=== PATIENT | female | born 1980 | race Caucasian/White ===

== ENCOUNTER → 2017-09-18 | Outpatient (CLI) | payer OTHER | END | disposition home or self-care (01) | LOC: LAB.O 16:15 | PROVIDERS: ATTEND Family Medicine | DX: R53.83 Other fatigue (principal); M32.9 Systemic lupus erythematosus, unspecified ==

== ENCOUNTER → 2018-04-02 | Outpatient (CLI) | payer BC | LOC: GMAL 17:16 | PROVIDERS: ATTEND Family Medicine | DX: M32.10 Systemic lupus erythematosus, organ or system involvement unspecified (principal) ==

== ENCOUNTER → 2018-09-11 | Outpatient (CLI) | payer BC | LOC: GMAL 12:54 | PROVIDERS: ATTEND Family Medicine | DX: M08.3 Juvenile rheumatoid polyarthritis (seronegative) (principal) ==

== ENCOUNTER → 2018-11-12 | Outpatient (CLI) | payer BC ==
--- NOTE | 2018-11-12 10:57 | CT ---
EXAM DESCRIPTION: Chest w/wo Contrast : Computed Tomography. CLINICAL HISTORY: 38 years Female LYMPHADENOPATHY. Breast cancer Genetic positive. Previous breast cancer. Bilateral mastectomies. COMPARISON: Abdomen and pelvis CT scan 05/04/2012. TECHNIQUE: Spiral-axial scans at 5 mm intervals through the lungs and thorax without and with IV contrast. 2.5 mm lung algorithm axial reconstructions. Sagittal and coronal 2.0 Mm reconstructions. 5 mm postcontrast spiral axial images through the neck soft tissues. No adverse reactions. Total Exam DLP: 1250.77 mGy-cm. This exam was performed according to our departmental dose-optimization program which includes automated exposure control, adjustment of the mA and/or kV according to patient size and/or use of iterative reconstruction technique; to reduce radiation dose to as low as reasonably achievable (ALARA). Nodule measurements under 10 mm are given as mean value of 3 axes diameters. FINDINGS: Lungs and large airways: Multiple nodules relatively uniform in density and margins and all less than 5 mm in diameter is visible in the bilateral lung lobes. Fewer are seen in the mid lung patel. These are too numerous to count. A charter representative image in the lower lobes is on axial series/image 7/104. A calcification approximately 5 mm mean diameter is visible in the superior segment of the right middle lobe. No focal infiltrates. No larger solid masses. Pleural spaces: Moderate left pleural effusion. Minimal atelectasis in the right lower lobe including a nodule. No pneumothorax. Mediastinum and Rebecca: No enlarged lymph nodes or soft tissue masses. Great vessels and Heart: Unremarkable. Soft tissues of neck, axillae, and chest wall: Bilateral retro-muscular saline breast prostheses. No enlarged axillary lymph nodes. In the lower neck scans through the skin marker is visible on the left lateral neck, a group of 4-5 lymph nodes are noted in the adipose tissue with 2 layers of fascia. Mid thyroid lobe level Only one lymph node is visible in the same region contralateral right neck. The largest node in the left neck is approximately 8 x 5 mm (axial image 2/15.). More inferiorly at the level of the inferior thyroid gland is a supraclavicular node, on image 2/20, measuring 9 mm. Possible 3 mm lymph node anterior to the medial left first rib on image 2/. Low-density 7 mm axillary node abutting the superior lateral right breast prosthesis posterior margin on image 2/32. Small nodes bilaterally in the paracervical space posterior to the bilateral carotid lymph nodes space. Upper abdomen: Partial visualization of pancreas liver and bilateral upper kidneys with no focal lesions. Included periaortic spaces negative. Included peritoneal space is negative. No focal lesions in the spleen or adrenal glands. Gallbladder partially visualized. Osseous structures: Scoliosis in the thoracic spine. No lytic or blastic bony lesions in the thorax. IMPRESSION: 1. Multiple small nodules 5 mm and less in diameter, too numerous to count, in all segments of the bilateral lungs are suggestive of metastases to the lungs. Moderate to large left pleural effusion with left lower lobe atelectasis. Effusion can be malignant. Consider whole-body PET scan and diagnostic left thoracentesis. 2. Probable mass left neck soft tissue corresponds to at least 4 lymph nodes in the adipose tissue, at the level of the mid thyroid gland, compared to one smaller lymph node contralateral right neck. All nodes less than 1 cm. 9 mm lymph node in the lateral left neck at the level of the inferior thyroid gland. 5 mm lymph node or mass in the left anterior chest wall at the level of the anterior left first rib just below the thoracic inlet. Lower density 7 mm lymph node abutting the posterior lateral right breast saline prosthesis in the right axilla. Electronically signed by: David Winslow MD 11/12/2018 10:55 AM CDT
== END ==
LOC: CT 08:28
PROVIDERS: ATTEND Family Medicine
DX: R59.9 Enlarged lymph nodes, unspecified (principal); R91.8 Other nonspecific abnormal finding of lung field; J91.8 Pleural effusion in other conditions classified elsewhere; J98.11 Atelectasis

== ENCOUNTER 2018-11-17 07:30 | Day surgery (SDC) | payer BC ==
[~2018-11-17 07:30] MED LIST: LACTATED RINGERS 1,000 ML ONE; SODIUM CHL 0.9% 100ML MINI-BAG 100 ML IVPB ONE; ceFAZolin SODIUM 1 GM VIAL ONE
[2018-11-17] MEDS ORDERED: SODIUM CHLORIDE 0.9% 50 ML VIAL ONE (07:43)
[2018-11-17] MEDS ORDERED: LIDOCAINE 1% 50 ML VIAL INJ ONE (07:43)
[2018-11-17] MEDS ORDERED: HEPARIN SODIUM 100 U/ML 5 ML SYG IV ONE (07:43)
[2018-11-17] MEDS ORDERED: KETAMINE HCL 100 MG/ML VIAL ONE (08:04)
[2018-11-17] MEDS ORDERED: fentaNYL CITRATE INJ 50 MCG/ML AMP ONE ×2 (08:04→09:55)
[2018-11-17] MEDS ORDERED: MIDAZOLAM INJ 5 MG/5 ML VIAL ONE (08:04)
[2018-11-17] MEDS ORDERED: SODIUM BICARBONATE VIAL 50 MEQ/50 ML VIAL ONE (08:14)
[2018-11-17] MEDS ORDERED: PROPOFOL 200 MG/20 ML VIAL IV ONE (10:00)
[2018-11-17] MEDS ORDERED: METOCLOPRAMIDE HCL INJ 10 MG/2 ML VIAL IV ONE (10:00)
[2018-11-17] MEDS ORDERED: LIDOCAINE 1% 10 ML VIAL INJ ONE (10:00)
[2018-11-17] MEDS ORDERED: DEXAMETHASONE INJ 10 MG/ML VIAL IV ONE (10:00)
[2018-11-17] MEDS ORDERED: raNITIdine HCL INJ 25 MG/ML VIAL IV ONE (10:00)
--- NOTE | 2018-11-17 11:20 | OP ---
DATE OF PROCEDURE: 11/17/18 PREOPERATIVE DIAGNOSIS: 1. History of carcinoma of the left breast. 2. Abnormal CT scan with lymphadenopathy in the left supraclavicular area. POSTOPERATIVE DIAGNOSIS: 1. History of carcinoma of the left breast. 2. Abnormal CT scan with lymphadenopathy in the left supraclavicular area. PROCEDURE: 1. Insertion of right subclavian venous access port using fluoroscopy. 2. Excision of deep supraclavicular lymph node on the left. SURGEON: Krzysztof Centeno MD. MRI TECH: None. ANESTHESIA: Local infiltration of 1% lidocaine and general laryngeal mask anesthesia by Anesthesia. INDICATION: The patient is a 38-year-old female who in 2013 underwent mastectomy for triple negative breast cancer. She underwent adjuvant chemotherapy, reconstruction and she has presented back with adenopathy. CT scan reveals bilateral pulmonary nodules. She was brought to the Surgical Suite today for port placement and biopsy of the left supraclavicular lymph node. FINDINGS: The fluoroscopy revealed first the guidewire and then the catheter in good position. The lymph node was identified and pathology is pending. PROCEDURE: The patient was brought to the Surgical Suite and placed in supine position. She was then prepped and draped in the usual sterile manner with IV sedation. A surgical time-out was taken. The right infraclavicular area was infiltrated with local anesthesia. The previous scar was localized and a 22- gauge needle was introduced under the clavicle and venous blood was easily aspirated. A stab wound was made with a #15 blade and the 18-gauge thin wall needle was introduced in the same direction. Blood was easily aspirated. The guidewire was advanced without difficulty and the needle was removed. At this point, fluoroscopy was not available, so with local anesthesia, a sharp knife and then electrocautery, the port pocket was formed medial to the previous port pocket. The catheter was then tunneled from the port pocket to the insertion site. The port was introduced into the port pocket and sutured in place with two Prolene sutures with care not to touch her implant. When these were tightened and tied, the subcutaneous tissue was reapproximated with interrupted 3-0 Vicryl sutures and the skin edges were approximated with 4-0 Vicryl subcuticular sutures. At this point, a towel was placed over the field and fluoroscopy was used to identify the guidewire in good position. The dilator and introducer were introduced over the guidewire. The dilator and introducer were removed. The catheter which had been cut to appropriate length and then cleaned with heparinized saline was introduced through the introducer with little difficulty. The introducer was then removed. The port was accessed with a Ring needle and easily aspirated. It was then flushed first with heparinized saline followed by heplock and then de-accessed. A towel was placed over the field. Again, fluoroscopy was used to identify the catheter in good position. At this point, the infraclavicular incision was closed with a single 4-0 Vicryl subcuticular suture, then benzoin and Steri-Strips were used for both incisions. A towel was placed over the field. The left neck incision was then formed, first with infiltration of anesthesia and then with a sharp knife through the previously marked area. Dissection was then carried down through the platysma using electrocautery, then retractors were placed. The lymph node was identified and then with a small amount of electrocautery, but mostly blunt dissection, the lymph node was eventually elevated and dissected free. It was sent for pathological evaluation. The wound was irrigated with lidocaine. Hemostasis was obtained with electrocautery. It was then closed in 2 layers with the platysma reapproximated with interrupted 3-0 Vicryl sutures. The skin edges were approximated with 4-0 Vicryl subcuticular sutures, benzoin and Steri-Strips. Sterile pressure dressings were applied. The patient was awakened and taken to the Recovery Room in stable condition. Estimated blood loss was less than 50 mL. All sponge, needle and instrument counts were correct. #[id number] [facility]
[2018-11-17] MEDS ORDERED: HYDROmorphone HCL INJ 2 MG/ML VIAL ONE (11:24)
--- NOTE | 2018-11-17 11:38 | RAD ---
EXAM DESCRIPTION: Chest,1 View CLINICAL HISTORY: 38 years Female, port placement COMPARISON: Previous study June 30, 2013 TECHNIQUE: AP portable chest. FINDINGS: Heart size is prominent with mild increased central pulmonary vascularity. Increased density behind the heart suggests partial volume loss or infiltrate. Port-A-Cath on the right is seen with tip at the SVC-right atrial junction. No pulmonary mass or worrisome nodule. No pneumothorax or pleural effusion. Bones are unremarkable. IMPRESSION: Partial volume loss in the medial left lung base. Electronically signed by: Jeffrey Romero MD 11/17/2018 11:36 AM CDT
--- NOTE | 2018-11-17 14:09 | RAD ---
EXAM DESCRIPTION: Fluoroscopy Up to 1Hr CLINICAL HISTORY: PRT PLACMENT COMPARISON: None. TECHNIQUE: Fluoroscopy time is 5 seconds, one spot film. FINDINGS: A right subclavian port is observed in place with distal tip of the catheter in the superior vena cava. IMPRESSION: Right subclavian MediPort catheter placement without evidence of complication. Electronically signed by: Shashank Diana MD 11/17/2018 2:07 PM CDT
[2018-11-17 14:20] VITALS: BP 128/85; TEMP 98.3; O2SAT 97
== END 2018-11-17 12:45 | disposition home or self-care (01) ==
LOC: AMB 07:30
PROVIDERS: ATTEND Surgery
DX: C77.0 Secondary and unspecified malignant neoplasm of lymph nodes of head, face and neck (principal); Z85.3 Personal history of malignant neoplasm of breast; Z92.21 Personal history of antineoplastic chemotherapy; Z90.11 Acquired absence of right breast and nipple; Z79.899 Other long term (current) drug therapy; Z88.6 Allergy status to analgesic agent; Z87.891 Personal history of nicotine dependence
CPT/HCPCS: 00320; 36415; 36561; 38505; 71045; 76000; 80048; 81001; 85025; A4216; C1788; J0690; J1100; J1170; J1642; J2250; J2765; J2780; J3010; J3490; J7050; J7120

== ENCOUNTER → 2019-07-29 | Outpatient (CLI) | payer BC ==
--- NOTE | 2019-07-30 21:32 | CT ---
EXAM DESCRIPTION: Chest w/Contrast : Computed Tomography. CLINICAL HISTORY: 39 years Female MALIGNANT NEOPLASM OF CENTRAL PORTION OF LEFT FEMALE BREAST COMPARISON: CT scan abdomen and pelvis with contrast on the same visit. TECHNIQUE: Spiral-axial scans at 5 x 5 mm intervals through the lungs and thorax without and with 75 mL Optiray 320 nonionic IV contrast. 2.5 x 5 mm lung algorithm axial reconstructions. Coronal and sagittal 2.0 Mm reconstructions. No adverse reactions. Total Exam DLP: Less than 277 mGy-cm. This exam was performed according to our departmental dose-optimization program which includes automated exposure control, adjustment of the mA and/or kV according to patient size and/or use of iterative reconstruction technique; to reduce radiation dose to as low as reasonably achievable (ALARA). Nodule measurements under 10 mm are given as mean value of 3 axes diameters. FINDINGS: Lungs and large airways: 4 mm triangle shaped nodule in the anterior medial left lung apex on axial image 8/12. Small focal scar more inferiorly in the apex, approximately 3 mm on axial image 8/17. Multiple small thickenings of the superior left major fissure 3 mm or less. Atelectasis versus infiltrate with air bronchograms in the inferior lingula also in the left lower lobe base with elevation of the left hemidiaphragm. Focal pleural thickening versus subpleural nodule lateral right lower lobe 3 mm in the no other nodule pleural or subpleural less than 3 mm in diameter abutting the posterior diaphragm. Calcified subpleural nodule posterior right lower lobe 7 mm. No abnormal nodules. Pleural spaces: Apical pleural thickening more on the left. Focal thickening abutting the left lower lobe. No effusion or pneumothorax. Mediastinum and Rebecca: No abnormal enhancement. No enlarged lymph nodes are dominant solid mass. Great vessels and Heart: Negative. Soft tissues of neck base, axillae, and chest wall: Injection port for VAD upper medial left breast reconstruction with tip in the proximal SVC and no mediastinal widening. Contrast was injected in the right upper extremity, not the VAD. Bilateral subpectoral breast implant reconstructions. No abnormal lymph nodes are dominant soft tissue masses. Upper abdomen: Please see abdominal pelvis CT scan report. Osseous structures: Sclerosis and deformity of the left mid inferior and mid manubrium and the proximal left sternum. Minimal adjacent soft tissue swelling. Minimal scoliosis in the thoracic spine. No other bony lesions are seen in the thorax. Early spondylosis of the thoracic spine. IMPRESSION: 1. 4 mm nodule left lung apex associated with pleural scarring. Subclinical focal thickening of the left major fissure. Other bilateral smaller nodules also subclinical in size. No abnormal nodule and no mass. Atelectasis versus infiltrate in the lingula and left lower lobe with elevation of the left hemidiaphragm. No chest CT follow-up recommended for nodules. CT follow-up according to staging criteria. 2. Sclerotic lesion with cortical destruction left inferior manubrium and left proximal sternum with soft tissue swelling. Possible metastasis. Consider radionuclide bone imaging for staging to locate occult bony metastases. 3. Please refer to report and images CT scan abdomen and pelvis with contrast on this visit. Electronically signed by: David Winslow MD 07/30/2019 9:31 PM [facility]
--- NOTE | 2019-07-31 10:44 | CT ---
EXAM DESCRIPTION: Abdomen/Pelvis w/Contrast: Computed Tomography. CLINICAL HISTORY: 39 years Female MALIGNANT NEOPLASM OF CENTRAL PORTION OF LEFT FEMALE BREAST COMPARISON: Chest CT scan with IV contrast on the same visit. CT scan abdomen and pelvis with and without contrast April 2012 TECHNIQUE: Spiral-axial scans at 5 mm intervals through the abdomen and pelvis, after nonionic IV contrast without oral contrast. Axial 2.5 mm reconstructions. Coronal and sagittal 2.0 mm reconstructions. Delayed scans, liver through the pelvis. Axial-spiral 5mm. No adverse reactions. Total Exam DLP: Less than 1224 mGy-cm. This exam was performed according to our departmental dose-optimization program which includes automated exposure control, adjustment of the mA and/or kV according to patient size and/or use of iterative reconstruction technique; to reduce radiation dose to as low as reasonably achievable (ALARA). FINDINGS: Lung bases and pleura: Please see exam and images from chest CT scan with IV contrast on the same visit. Liver, Stomach, Spleen, Adrenal Glands: Long axis right lobe liver 18.8 cm. Small splenule inferior lateral spleen. Elevated with left upper quadrant structures under the elevated left hemidiaphragm. No gastric distention. Adrenals negative. Pancreas, Gallbladder, Ducts: Gallbladder visualized. Normal caliber of the duct. Pancreas unremarkable. Kidneys and Ureters: Negative. Mesentery: Scattered small lymph nodes adjacent to small bowel. Aorta: Negative. Small Bowel: Fluid and gas with no significant distention. Terminal Ileum/Cecum: Normal caliber along with the appendix. No inflammatory changes. Colon: Moderate distention of the ascending colon transverse colon and descending colon with fecal matter. Moderate redundancy of the sigmoid colon with moderate fecal matter proximal sigmoid and in the rectum. No complications. Pelvic Organs: Negative. Spine and Bony Pelvis: Spondylosis in the lower thoracic spine. No lytic or blastic lesions. Abdominal Wall/Back Soft Tissues: Small inguinal lymph nodes. IMPRESSION: 1. Small mesenteric lymph nodes in the mid anterior abdominal mesentery. Minimal gas and fluid in the small bowel. Possible mesenteric enteritis. Correlate with clinical findings. 2. Solid organs and stomach are unremarkable. No masses in the organs, abdominal wall, peritoneal or retroperitoneal cavity. Minimal hepatic enlargement without focal mass. 3. Mild to moderate constipation involving most of the colon. Electronically signed by: David Winslow MD 07/31/2019 10:43 AM [employer]
== END ==
LOC: CT 15:11
PROVIDERS: ATTEND Internal Medicine Hematology & Oncology
DX: C50.112 Malignant neoplasm of central portion of left female breast (principal); R91.1 Solitary pulmonary nodule; R91.8 Other nonspecific abnormal finding of lung field; R16.0 Hepatomegaly, not elsewhere classified; M89.9 Disorder of bone, unspecified; J98.6 Disorders of diaphragm; M79.9 Soft tissue disorder, unspecified; K59.00 Constipation, unspecified

== ENCOUNTER → 2019-10-28 | Outpatient (CLI) | payer BC ==
--- NOTE | 2019-10-28 23:10 | CT ---
EXAM DESCRIPTION: Chest w/Contrast : Computed Tomography. CLINICAL HISTORY: 39 years Female MALIGNANT NEOPLASM OF CENTRAL PORTION OF LEFT FEMALE BREAST COMPARISON: CT scan of the chest without contrast July 29. CT scan of the abdomen and pelvis on this visit. TECHNIQUE: Spiral-axial scans at 5 x 5 mm intervals through the lungs and thorax with 75 mL Optiray 320 nonionic IV contrast. 2.5 x 5 mm lung algorithm axial reconstructions. : Sagittal 2.0 Mm reconstructions. No adverse reactions. Total Exam DLP: 131 mGy-cm. This exam was performed according to our departmental dose-optimization program which includes automated exposure control, adjustment of the mA and/or kV according to patient size and/or use of iterative reconstruction technique; to reduce radiation dose to as low as reasonably achievable (ALARA). Nodule measurements under 10 mm are given as mean value of 3 axes diameters. FINDINGS: Lungs and large airways: Again noted is elevation of the left hemidiaphragm pleural-parenchymal scarring in the inferior lingula and left lower lobe and minimal air bronchograms abutting the diaphragm. Improved expansion of the left hemithorax and lung compared to the prior study. Stable subclinical subpleural nodules in the lingula. Stable nodule associated with the lateral superior right major fissure. Stable subclinical subpleural nodule in the right upper lobe. Stable large subpleural calcified nodule posterior base of the superior segment right lower lobe. Adjacent subclinical subpleural nodule with no interval change. No new abnormal nodules and no masses. No new infiltrates. Pleural spaces: Stable bilateral focal pleural thickening mostly left hemithorax. No effusion or pneumothorax. Mediastinum and Rebecca: No new abnormal lymph nodes. No dominant soft tissue mass. Great vessels and Heart: Negative Soft tissues of neck base, axillae, and chest wall: Stable position of VAD injection port in the superior medial right breast with distal tip in the superior aspect of the superior vena cava. Bilateral subpectoral breast implants stable. Upper abdomen: Please see report and images for CT scan of the abdomen today. Osseous structures: Sclerotic irregular lesion again noted in the junction of the manubrium and the upper sternal body. No enlarging parasternal soft tissue mass. No pathologic fracture. IMPRESSION: 1. Improved volume in the left hemithorax compared to the prior study, particularly in the left lower lobe. Pleural parenchymal scarring and minimal atelectasis remain in the left lower lobe. No new abnormal pulmonary nodules bilaterally. Stable multiple subpleural subclinical nodules bilaterally. No new mass or new infiltrate. Stable bilateral focal pleural changes. 2. Stable sclerotic lesion at the junction of the manubrium and superior sternal body, with no pathologic fracture or soft tissue mass. Electronically signed by: David Winslow MD 10/28/2019 11:08 PM CDT
--- NOTE | 2019-10-28 23:37 | CT ---
EXAM DESCRIPTION: Abdomen/Pelvis w/Contrast: Computed Tomography. CLINICAL HISTORY: 39 years Female MALIGNANT NEOPLASM OF CENTRAL PORTION OF LEFT FEMALE BREAST COMPARISON: CT scan of the abdomen and pelvis July 29. TECHNIQUE: Spiral-axial scans at 5 x 5 mm intervals through the abdomen and pelvis, after nonionic IV contrast and water-soluble oral contrast. Axial 2.5 mm reconstructions. Coronal and sagittal 2.0 mm reconstructions. Delayed scans, liver through the pelvis. Axial-spiral 5mm. No adverse reactions. Total Exam DLP: 1682 mGy-cm. This exam was performed according to our departmental dose-optimization program which includes automated exposure control, adjustment of the mA and/or kV according to patient size and/or use of iterative reconstruction technique; to reduce radiation dose to as low as reasonably achievable (ALARA). FINDINGS: Mesentery: Again noted is a group of mesenteric nodes to the left of the superior mesenteric vein, medial to proximal jejunum and anterior to the duodenal jejunal junction, at the level of the left kidney. The largest node in this group is on axial series 3, image 37 and coronal series 304, image 30, measures 6.5 x 6.8 mm, similar to the prior study. No new nodes or enlarging nodes. Several smaller nodes. No free fluid or free air. No new nodes in the lower quadrants of the abdomen or the right upper quadrant.. Lung bases and pleura: Please see images and report from CT scan of the chest on this visit. Liver, Stomach, Spleen, Adrenal Glands: Stomach is not well distended. Solid organs are negative. Pancreas, Gallbladder, Ducts: Gallbladder visualized. Duct not distended. Pancreas negative with small calcification again noted in the tail. Kidneys and Ureters: Unremarkable. Aorta: Negative with no periaortic adenopathy. Small Bowel: Unremarkable. Terminal Ileum/Cecum: Normal caliber. This included the appendix. No inflammatory changes. Colon: Minimal to moderate amount of fecal matter throughout the colon. Moderate redundancy of the sigmoid colon. Pelvic Organs: Distended urinary bladder. Spine and Bony Pelvis: No lytic or blastic lesions. Minimal lumbar levoscoliosis. Abdominal Wall/Back Soft Tissues: Negative. IMPRESSION: Mesenteric nodes again seen in the left upper quadrant of the abdomen between the duodenal jejunal junction and the superior mesenteric vein. Largest node in the group is stable in size since the prior study with no surrounding fatty stranding or fluid. Several nodes have decreased in size since the prior study. Remainder of the examination is unremarkable. Electronically signed by: David Winslow MD 10/28/2019 11:35 PM CDT
== END ==
LOC: CT 08:00
PROVIDERS: ATTEND Internal Medicine Hematology & Oncology
DX: C50.112 Malignant neoplasm of central portion of left female breast (principal); J98.4 Other disorders of lung; J98.11 Atelectasis; M89.9 Disorder of bone, unspecified

== ENCOUNTER 2020-03-16 20:43 | Emergency (ER) | payer BC, OTHER ==
[2020-03-16 21:16] VITALS: TEMP 97.1
[2020-03-16] MEDS ORDERED: HYDROmorphone HCL INJ 2 MG/ML VIAL IV ONE (21:33)
--- NOTE | 2020-03-16 22:16 | RAD ---
EXAM DESCRIPTION: KUB, two views CLINICAL HISTORY: pain COMPARISON: March 20, 2016 FINDINGS: Supine and upright images of the abdomen were submitted. There is no free air in the abdomen. There is no evidence of bowel obstruction. There is scoliosis of the lumbar spine. IMPRESSION: No acute abnormalities. Electronically signed by: Daiz Carrera MD 03/16/2020 10:14 PM CDT
[2020-03-16] MEDS ORDERED: MAGNESIUM HYDROXIDE 30 ML UD PO ONE (22:36)
--- NOTE | 2020-03-16 22:39 | ED.PDOC ---
History of Present Illness - General Chief Complaint: Abdominal Pain Stated Complaint: Left-sided rib pain and abdominal pain Time Seen by Provider: 03/16/20 20:46 Additional Information: The patient is a 40-year-old female with breast cancer and presents emergency department complaining of left-sided repeat abdominal pain. She states that she has had 2 CT scans of the chest and a PET scan and she was told by her oncologist that these are non-metastatic lesions. She was told thatThe malignancy is not progressing and she does not have any lytic lesions on the bone. She states that she however continues to have pain. She states that the tramadol does not help much with her pain. She complains of abdominal pain denies any nausea vomiting denies any diarrhea. States that she may or may not be constipated. Her last bowel movement was this morning but states it was very small. - History of Present Illness Timing/Duration: constant Improving Factors: medication Worsening Factors: nothing Associated Symptoms: denies symptoms Allergies/Adverse Reactions: Allergies Morphine Allergy (Unknown, Verified 11/16/18 17:04) Rash Home Medications: Ambulatory Orders Diphenhydramine-Acetaminophen [Tylenol Pm Extra Strength 500-25 mg] 1 tab PO BEDTIME PRN 11/16/18 Tramadol HCl 50 mg PO PRN PRN 11/16/18 Review of Systems - Review of Systems Constitutional: Denies: chills, fever EENTM: Denies: eye pain, tearing Respiratory: Denies: cough, orthopnea Cardiology: Denies: chest pain, syncope Gastrointestinal/Abdominal: States: abdominal pain. Denies: diarrhea Genitourinary: Denies: discharge, dysuria, frequency Musculoskeletal: States: other - Left rib pain Skin: States: see HPI. Denies: change in color, dryness Neurological: Denies: depressed, headache, numbness Past Medical History (General) - Patient Medical History Hx Seizures: No Hx Stroke: No Hx Dementia: No Hx Asthma: No Hx of COPD: No Hx Cardiac Disorders: No Hx Congestive Heart Failure: No Hx Pacemaker: No Hx Hypertension: No Hx Thyroid Disease: No Hx Diabetes: No Hx Gastroesophageal Reflux: No Hx Renal Disease: No Hx Cancer: Yes - Breast Hx of HIV: No Hx Hepatitis C: No Hx MRSA: Yes MRSA Source:: Skin Surgical History: cancer surgery, Hysterectomy - Vaccination History Hx Tetanus, Diphtheria Vaccination: Yes Hx Influenza Vaccination: No Hx Pneumococcal Vaccination: Yes - Social History Hx Tobacco Use: No Hx Chewing Tobacco Use: No Hx Alcohol Use: Yes Hx Substance Use: No Hx Substance Use Treatment: No Hx Depression: No Feels Threatened In Home Enviroment: No Feels Threatened In a Relationship: No Hx Physical Abuse: No Hx Emotional Abuse: No Hx Suspected Abuse: No Physical Exam - Physical Exam General Appearance: Alert, Well Developed Eye Exam: bilateral normal Ears, Nose, Throat: normal ENT inspection, normal pharynx Neck: full range of motion, supple, normal inspection Respiratory: chest non-tender, lungs clear, normal breath sounds, other - Left- sided rib pain tender to palpation Cardiovascular/Chest: normal peripheral pulses, regular rate, rhythm, no JVD Peripheral Pulses: radial,right: 2+, radial,left: 2+ Gastrointestinal/Abdominal: normal bowel sounds, non tender, soft Back Exam: normal inspection, no CVA tenderness Skin Exam: normal color, cyanosis Progress - Progress Progress: 03/16/20 22:40 Discussed the results and findings with the patient. Discharging the patient from the primary care physician. Called the patient's doctor and discussed findings with him. 03/16/20 22:40 - EKG/XRAY/CT XRAY: abdomen - No obstruction significant amount of stool burden Departure - Departure Clinical Impression: Rib pain on left side, Constipation, Abdominal pain Clinical Impression: (Ruled Out): Rib pain on right side Disposition: Discharge to Home or Self Care Departure Forms: ED Discharge - Pt. Copy, Patient Portal Self Enrollment Referrals: Shashank Cummings III, MD [Primary Care Provider] - 1-2 Weeks Home Medications: Ambulatory Orders Diphenhydramine-Acetaminophen [Tylenol Pm Extra Strength 500-25 mg] 1 tab PO BEDTIME PRN 11/16/18 Tramadol HCl 50 mg PO PRN PRN 11/16/18 Comments: Call Dr. Centeno Office for follow-up appointment tomorrow. Starting Medication for constipation take as prescribed.
[2020-03-16 22:53] VITALS: BP 143/84; O2SAT 97
== END 2020-03-16 22:52 | disposition home or self-care (01) ==
LOC: ER 20:43
DX: R07.81 Pleurodynia (principal); R10.9 Unspecified abdominal pain; C50.919 Malignant neoplasm of unspecified site of unspecified female breast; Z88.5 Allergy status to narcotic agent
CPT/HCPCS: 36415; 74018; 80053; 82150; 83690; 85025; J1170

== ENCOUNTER → 2020-03-17 | Outpatient (CLI) | payer OTHER ==
--- NOTE | 2020-03-17 14:19 | US ---
EXAM: Abdomen,Complete CLINICAL HISTORY: RUQ PAIN TECHNIQUE: Abdomen complete ultrasound. COMPARISON STUDY: CT abdomen pelvis from July 29, 2019 FINDINGS: Ultrasound evaluation of the abdominal structures demonstrates the liver, spleen, pancreas, kidneys to have a normal sonographic appearance. The right kidney is 10.2 cm in length and the left 10.7 cm. There are no visible gallstones or biliary dilatation. The common bile duct measures 4 millimeters. No free fluid is present. The aorta is non-dilated. IVC is unremarkable. A small left pleural effusion is identified. IMPRESSION: 1. Negative abdomen complete ultrasound. 2. Small left pleural effusion. Electronically signed by: Zac Hurt MD 03/17/2020 2:17 PM CDT
== END ==
LOC: US 08:46
PROVIDERS: ATTEND Surgery
DX: R10.11 Right upper quadrant pain (principal); J90 Pleural effusion, not elsewhere classified

== ENCOUNTER 2020-06-26 07:52 | Observation (INO) | payer OTHER ==
[2020-06-26] MEDS ORDERED: HYDROmorphone HCL INJ 2 MG/ML VIAL IV ONE ×2 (08:12→10:43)
[2020-06-26] MEDS ORDERED: ALUM & MAG HYDROX-SIMETHICONE 30 ML, LIDOCAINE VISCOUS 2% 15 ML PO ONE ×2 (08:13)
[2020-06-26] MEDS ORDERED: SODIUM CHLORIDE 0.9% 1000ML 1,000 ML IVS ONE (09:00)
[2020-06-26] MEDS ORDERED: PREGABALIN 75 MG CAP PO ONE (09:02)
[2020-06-26] MEDS ORDERED: KETOROLAC TROMETHAMINE INJ 30 MG/ML VIAL IM ONE (09:02)
--- NOTE | 2020-06-26 10:17 | CT ---
EXAM DESCRIPTION: Abdomen/Pelvis w/Contrast (accession [id number]), Chest w/Contrast (accession [id number]) CLINICAL HISTORY: 40 years Female, uncontrolled luq pain, mets TECHNIQUE: This exam was performed according to our departmental dose-optimization program, which includes automated exposure control, adjustment of the mA and/or kV according to patient size and/or use of iterative reconstruction technique. COMPARISON: 10/28/2019 FINDINGS: Right chest wall port tip within the SVC. Bilateral breast prostheses. No axillary adenopathy. Normal caliber thoracic aorta. No pericardial effusion. Large left pleural effusion with adjacent atelectasis/consolidation. Similar sequela of prior granulomatous disease. Solid noncalcified sub-6 mm right lower lobe pulmonary nodule series 8 image 57. No pneumothorax. Focal fatty infiltration adjacent to falciform ligament. No suspicious hepatic lesion. No biliary dilatation. The gallbladder is unremarkable. The portal vein is patent. The spleen, pancreas and adrenal glands are unremarkable. Symmetric renal parenchymal enhancement. No hydronephrosis. No obstructing urolithiasis. Unremarkable bladder. Hysterectomy. No suspicious adnexal lesion. No evidence of bowel obstruction or focal inflammatory change. No findings to suggest appendicitis. Normal appendix. No adenopathy. No focal fluid collection. No free air. Normal caliber abdominal aorta. Similar sclerotic lesion in the sternum and manubrium. No new osseous lesion identified. IMPRESSION: 1. Large left pleural effusion with adjacent atelectasis/consolidation. 2. Similar sclerotic lesion in the sternum and manubrium. No new osseous lesion identified. 3. New solid noncalcified sub-6 mm right lower lobe pulmonary nodule. Electronically signed by: Manny Lambert MD 06/26/2020 10:15 AM [facility]
--- NOTE | 2020-06-26 10:17 | CT ---
EXAM DESCRIPTION: Abdomen/Pelvis w/Contrast (accession [id number]), Chest w/Contrast (accession [id number]) CLINICAL HISTORY: 40 years Female, uncontrolled luq pain, mets TECHNIQUE: This exam was performed according to our departmental dose-optimization program, which includes automated exposure control, adjustment of the mA and/or kV according to patient size and/or use of iterative reconstruction technique. COMPARISON: 10/28/2019 FINDINGS: Right chest wall port tip within the SVC. Bilateral breast prostheses. No axillary adenopathy. Normal caliber thoracic aorta. No pericardial effusion. Large left pleural effusion with adjacent atelectasis/consolidation. Similar sequela of prior granulomatous disease. Solid noncalcified sub-6 mm right lower lobe pulmonary nodule series 8 image 57. No pneumothorax. Focal fatty infiltration adjacent to falciform ligament. No suspicious hepatic lesion. No biliary dilatation. The gallbladder is unremarkable. The portal vein is patent. The spleen, pancreas and adrenal glands are unremarkable. Symmetric renal parenchymal enhancement. No hydronephrosis. No obstructing urolithiasis. Unremarkable bladder. Hysterectomy. No suspicious adnexal lesion. No evidence of bowel obstruction or focal inflammatory change. No findings to suggest appendicitis. Normal appendix. No adenopathy. No focal fluid collection. No free air. Normal caliber abdominal aorta. Similar sclerotic lesion in the sternum and manubrium. No new osseous lesion identified. IMPRESSION: 1. Large left pleural effusion with adjacent atelectasis/consolidation. 2. Similar sclerotic lesion in the sternum and manubrium. No new osseous lesion identified. 3. New solid noncalcified sub-6 mm right lower lobe pulmonary nodule. Electronically signed by: Manny Lambert MD 06/26/2020 10:15 AM [facility]
--- NOTE | 2020-06-26 10:45 | ED.PDOC ---
History of Present Illness - General Chief Complaint: Abdominal Pain Stated Complaint: left upper abdominal pain Time Seen by Provider: 06/26/20 08:11 Source: patient Exam Limitations: no limitations - History of Present Illness Initial Comments: The patient is a 40-year-old female presented emergency room secondary to persistent left upper quadrant pain. She has had some mild increased shortness of breath as well. No fever. No vomiting. Mild nausea. She was seen in [place] about 5 days ago and had a CT scan of abdomen pelvis which she reports showed no significant acute pathology. Due to persistent worsening of pain she was sent to [facility] where she had upper and lower endoscopies which she reports were essentially okay. She was sent home but continued to have severe pain. She presents here today in that state. No fever. No current vomiting. No diarrhea. She has had chronic constipation issues. But she did undergo a cleanout days ago for the scopes. Timing/Duration: unsure Severity: severe Improving Factors: nothing Worsening Factors: movement Associated Symptoms: loss of appetite, malaise, shortness of breath Allergies/Adverse Reactions: Allergies Morphine Allergy (Unknown, Verified 06/26/20 08:13) Rash Home Medications: Ambulatory Orders Diphenhydramine-Acetaminophen [Tylenol Pm Extra Strength 500-25 mg] 1 tab PO BEDTIME PRN 11/16/18 Tramadol HCl 50 mg PO PRN PRN 11/16/18 Review of Systems - Review of Systems Constitutional: States: malaise EENTM: States: no symptoms reported Respiratory: States: short of breath Cardiology: States: no symptoms reported Gastrointestinal/Abdominal: States: no symptoms reported Genitourinary: States: no symptoms reported Musculoskeletal: States: no symptoms reported Skin: States: no symptoms reported Neurological: States: no symptoms reported Past Medical History (General) - Patient Medical History Hx Seizures: No Hx Stroke: No Hx Dementia: No Hx Asthma: No Hx of COPD: No Hx Cardiac Disorders: No Hx Congestive Heart Failure: No Hx Pacemaker: No Hx Hypertension: No Hx Thyroid Disease: No Hx Diabetes: No Hx Gastroesophageal Reflux: No Hx Renal Disease: No Hx Cancer: Yes - Breast Hx of HIV: No Hx Hepatitis C: No Hx MRSA: Yes MRSA Source:: Skin Surgical History: Hysterectomy - Vaccination History Hx Tetanus, Diphtheria Vaccination: Yes Hx Influenza Vaccination: No Hx Pneumococcal Vaccination: Yes - Social History Hx Tobacco Use: No Hx Chewing Tobacco Use: No Hx Alcohol Use: Yes Hx Substance Use: No Hx Substance Use Treatment: No Hx Depression: No Hx Physical Abuse: No Hx Emotional Abuse: No Hx Suspected Abuse: No Family Medical History - Family History Mother Family History: Unknown Physical Exam - Physical Exam General Appearance: Alert, Anxious Eye Exam: bilateral normal Ears, Nose, Throat: hearing grossly normal, normal pharynx Neck: full range of motion, supple Respiratory: lungs clear, normal breath sounds, no respiratory distress, no accessory muscle use Cardiovascular/Chest: normal peripheral pulses, regular rate, rhythm, no edema Peripheral Pulses: radial,right: 2+, radial,left: 2+ Gastrointestinal/Abdominal: soft, other - Left upper quadrant and lower rib cage anteriorly discomfort to palpation. No obvious palpable mass. 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 The patient does have known metastatic breast cancer. Laboratory work is reassuring. According to the work-up the most likely source would be the large pleural effusion. is evaluating the patient and will plan on taking off some fluid to see if that helps discomfort in the very near future. She is currently receiving doses of a GI cocktail, Toradol and 2 doses of Dilaudid. Vital signs are otherwise stable. Patient is being admitted for pain control and work-up of the uncontrolled pain as above. bird denis [phone] - Results/Orders Results/Orders: CT scan of the chest abdomen pelvis show chronic changes including some sclerosis that are unchanged. She has a large left pleural effusion. See report for further details. She does have known metastatic cancer. Laboratory Results - last 24 hr 01/05/0606/26/20 06/26/20 08:15 08:15 08:15 WBC 7.6 RBC 4.66 Hgb 13.4 Hct 39.8 MCV 85.4 MCH 28.7 MCHC 33.6 RDW 15.5 H Plt Count 219 MPV 8.4 Absolute Neuts (auto) 5.50 Absolute Lymphs (auto) 1.30 Absolute Monos (auto) 0.60 Absolute Eos (auto) 0.10 Absolute Basos (auto) 0.00 Neutrophils % 73.3 Lymphocytes % 17.6 L Monocytes % 7.9 Eosinophils % 0.7 L Basophils % 0.5 PT 10.0 INR 1.01 PTT (SP) 35.4 H D-Dimer, Quantitative 219.0 Sodium 142 Potassium 3.8 Chloride 108 Carbon Dioxide 26 Anion Gap 11.8 L BUN 10 Creatinine 0.76 BUN/Creatinine Ratio 13.2 Random Glucose 97 Serum Osmolality 282.1 Lactic Acid Calcium 8.7 Total Bilirubin 0.5 AST 15 ALT 20 Alkaline Phosphatase 40 L Creatine Kinase 45 CK-MB (CK-2) 0.5 CK-MB (CK-2) % Not Reportable Troponin I < 0.02 B-Natriuretic Peptide < 15.0 Serum Total Protein 7.4 Albumin 4.3 Globulin 3.1 Albumin/Globulin Ratio 1.4 Amylase 32 Lipase 37 Serum HCG, Qual Urine Color Urine Appearance Urine pH Ur Specific [place] Urine Protein Urine Glucose (UA) Urine Ketones Urine Blood Urine Nitrite Urine Bilirubin Urine Urobilinogen Ur Leukocyte Esterase Urine RBC Urine WBC Ur Epithelial Cells Amorphous Sediment Urine Bacteria Urine Mucus 06/26/20 06/26/20 06/26/20 08:15 08:15 10:02 WBC RBC Hgb Hct MCV MCH MCHC RDW Plt Count MPV Absolute Neuts (auto) Absolute Lymphs (auto) Absolute Monos (auto) Absolute Eos (auto) Absolute Basos (auto) Neutrophils % Lymphocytes % Monocytes % Eosinophils % Basophils % PT INR PTT (SP) D-Dimer, Quantitative Sodium Potassium Chloride Carbon Dioxide Anion Gap BUN Creatinine BUN/Creatinine Ratio Random Glucose Serum Osmolality Lactic Acid 1.1 Calcium Total Bilirubin AST ALT Alkaline Phosphatase Creatine Kinase CK-MB (CK-2) CK-MB (CK-2) % Troponin I B-Natriuretic Peptide Serum Total Protein Albumin Globulin Albumin/Globulin Ratio Amylase Lipase Serum HCG, Qual Negative Urine Color Yellow Urine Appearance Cloudy Urine pH >= 9.0 H* Ur Specific [place] 1.015 Urine Protein Trace Urine Glucose (UA) Negative Urine Ketones Trace Urine Blood Negative Urine Nitrite Negative Urine Bilirubin Negative Urine Urobilinogen 0.2 Ur Leukocyte Esterase Negative Urine RBC 0-1 Urine WBC 1-3 Ur Epithelial Cells 3-5 Amorphous Sediment 1+ Urine Bacteria Rare Urine Mucus Small - EKG/XRAY/CT CT Ordered: No Departure - Departure Clinical Impression: Uncontrolled pain, Pleural effusion due to another disorder, Metastatic breast cancer Disposition: Admit Patient Departure Forms: ED Discharge - Pt. Copy, Patient Portal Self Enrollment Referrals: Shashank Cummings III, MD [Primary Care Provider] - 1-2 Weeks Home Medications: Ambulatory Orders Diphenhydramine-Acetaminophen [Tylenol Pm Extra Strength 500-25 mg] 1 tab PO BEDTIME PRN 11/16/18 Tramadol HCl 50 mg PO PRN PRN 11/16/18 Decision To Admit - Decistion To Admit Decision to Admit Reason: Medical Nature Decision to Admit Date: 06/26/20 Decision to Admit Time: 10:48
[2020-06-26] MEDS ORDERED: fentaNYL CITRATE INJ 50 MCG/ML 2 ML AMP IV ONE (11:01)
[2020-06-26] MEDS ORDERED: SODIUM CHLORIDE 0.9% (FLUSH) 10 ML SYG IV PRN (11:24)
[2020-06-26] MEDS ORDERED: IV SET AND CAP CHANGE INJ INJ SCH (11:30)
--- NOTE | 2020-06-26 12:04 | HP ---
SUPERVISING PHYSICIAN: Fly Zepeda MD CHIEF COMPLAINT: Intractable left upper quadrant pain. HISTORY OF PRESENT ILLNESS: This is a 40-year-old female with a history of breast cancer status post mastectomy in 2012, but now with metastasis to the lungs and the bones. She apparently has been having this pain for the last few months. She was actually at [facility] yesterday getting this pain evaluated as well. She has had an EGD, colonoscopy which have ruled out neoplasm. She is currently on chemotherapy and immunotherapy every 3 weeks per oncology through [place]. There is no mention of a pleural effusion on the records from [facility]. Apparently back in May, she had had some thoracic spinal pain and received a fluoroscopically guided left thoracic medial branch nerve block at T6 to T9. It also appears that on June 05 she had fluoroscopically guided radiofrequency denervation of the cervical medial branch nerves at T6, T7 and T9 levels. When she came to the ER today, she had CT of the chest, abdomen and pelvis. The CT abdomen and pelvis was consistent with a large left pleural effusion with adjacent atelectasis or consolidation, a sclerotic lesion in the sternum and manubrium, but no new osseous lesions, and a new solid noncalcified sub 6 mm right lower lobe pulmonary nodule. The rest of the scan was unremarkable. She had a CT scan of the chest which showed a large left pleural effusion as well and basically showed the same findings as the abdomen and pelvis. Her labs were unremarkable. Dr. Centeno, who performed the mastectomy on the patient in 2012, and in fact the patient called his office today, went by to see the patient and plans on thoracentesis. At time of examination, the patient has some mild shortness of breath, but consistent pain which although better than when she arrived, she is still hurting. Her vital signs have been stable. PAST MEDICAL HISTORY: 1. Breast cancer in 2013 status post mastectomy, now with metastasis to the lungs and bones found 1-1/2 years ago and is currently on chemotherapy and immunotherapy, last one 3 weeks ago in [place]. PAST SURGICAL HISTORY: 1. Double mastectomy, breast reconstruction. 2. Hysterectomy. 3. Two port placement. 4. Two lumpectomies. MEDICATIONS: Please see medication reconciliation list once verified in the computer. ALLERGIES: MORPHINE. FAMILY HISTORY: She states multiple family members on her mother's side have cancer. SOCIAL HISTORY: Nonsmoker, rare alcohol use, no illicit drugs. REVIEW OF SYSTEMS: CONSTITUTIONAL: No fever or chills. No recent weight loss or weight gain. HEENT: No headaches, vision changes, ear pain, nasal congestion or throat pain. RESPIRATORY: No cough, hemoptysis, but she does have some shortness of breath and pleuritic chest pain. CARDIOVASCULAR: No chest pain, palpitations or peripheral edema. GASTROINTESTINAL: No nausea, vomiting, diarrhea, constipation or abdominal pain. GENITOURINARY: No dysuria, frequency or flank pain. ENDOCRINE: No polydipsia, polyuria or polyphagia. No heat or cold intolerance. NEUROLOGIC: No syncope, paresthesias or seizures. HEMATOLOGIC: No easy bruising and no transfusion reaction. PHYSICAL EXAMINATION: VITAL SIGNS: Blood pressure 158/97, heart rate 78, respiratory rate 20, temperature 97.4, oxygen saturation 98% on room air. GENERAL: Ms. Anthony is a 40-year-old female who is in mild to moderate distress secondary to pain. NEUROLOGIC: The patient is alert. LUNGS: Diminished left base. Otherwise, clear to auscultation bilaterally. CARDIOVASCULAR: Regular rate and rhythm. Normal S1, S2. ABDOMEN: Soft. Positive bowel sounds. GENITOURINARY: Deferred. EXTREMITIES: Lower extremities with no edema. LABORATORY: Labs and films are as discussed in history of present illness. IMPRESSION: 1. Large left pleural effusion. 2. Intractable left upper quadrant pain which actually appears to be possibly pleuritic in nature. 3. History of metastatic breast cancer to the lungs and bones although no lesions visualized on CT scan here in the lungs. 4. Immunocompromised state secondary to chemotherapy and immunotherapy. PLAN: The patient will be admitted to the hospital and planned for thoracentesis. Additionally, we will provide pain control. I have ordered p.r.n. fentanyl as well as [place]. I have put her on a proton pump inhibitor as well. I will start her on a diet after a thoracentesis and see if thoracentesis actually helps with the pain. We will reevaluate her pain on a frequent basis and adjust medications according. We will discuss with Dr. Cummings post thoracentesis as well. #[id number] [facility]
--- NOTE | 2020-06-26 12:59 | CONS ---
DATE OF CONSULTATION: 06/26/20 HISTORY OF PRESENT ILLNESS: The patient is a 40-year-old female who has had unrelenting left upper quadrant pain for some period of time. She has had no fever. There has been some weight loss, but no current nausea or vomiting although she did have some nausea and vomiting yesterday when she was discharged from [facility]. She denies hematemesis, hematochezia, melanotic stools. PAST MEDICAL HISTORY: 1. Carcinoma of the left breast that was initially treated I believe in 2012. She has had bilateral mastectomies with reconstruction and currently has ongoing cytotoxic chemotherapy for metastasis. PAST SURGICAL HISTORY: 1. Bilateral mastectomies with reconstruction. 2. Hysterectomy. 3. Childbirth x1. MEDICATIONS: 1. Tramadol. ALLERGIES: MORPHINE. FAMILY HISTORY: Positive for carcinoma of the breast in her mother. SOCIAL HISTORY: The patient is . She has no history of tobacco abuse. She does use alcohol moderately. She does not use street drugs. PHYSICAL EXAMINATION: GENERAL: The patient is awake, alert, cooperative, in moderate distress and is anxious. HEENT: Sclerae nonicteric. Mucous membranes moist. NECK: Without adenopathy. BACK: Without CVA tenderness. CHEST: Decreased breath sounds on the left at the base. HEART: Regular rhythm. ABDOMEN: Soft. There is tenderness in the left upper quadrant on primary physician without mass, without rebound. PELVIC/RECTAL: Deferred. EXTREMITIES: Without cyanosis, clubbing or edema. LABORATORY: White count 7,000, hemoglobin 13.4, 73% neutrophils. Chemistry reveals potassium 3.8, creatinine 0.76, calcium 8.7. Liver functions within normal limits. CK and MB within normal limits. BNP within normal limits. Amylase and lipase within normal limits. HCG negative. RADIOLOGY: CT scan of the chest reveals large left pleural effusion with possible new small sub 6 mm mass in the right lung. The left lung, the left lower lobe especially is collapsed. There is no obvious mass effect or adenopathy in the mediastinum or the left chest cavity. CT of the abdomen is unremarkable other than a significant amount of stool in the colon, but no free air, free fluid, no inflammatory process identified. IMPRESSION: 1. Unrelenting left upper quadrant pain of uncertain etiology. 2. Large left pleural effusion. PLAN: The risks, benefits and alternatives of thoracentesis were discussed with the patient in the presence of her and they agreed to the plan. These studies will be sent for cytology, cell count, culture, etc. This will be done under ultrasound guidance. #[id number] [facility]
[2020-06-26] MEDS: fentaNYL CITRATE INJ 50 MCG/ML 2 ML AMP IV PRN ×4 (13:38→23:49)
--- NOTE | 2020-06-26 13:51 | RAD ---
EXAM DESCRIPTION: Chest,1 View CLINICAL HISTORY: centesis COMPARISON: November 17, 2018 IMPRESSION: Single AP portable upright view of the chest shows mild enlargement of the cardiac silhouette without pulmonary vascular congestion. Right lung is normally aerated and clear. Right subclavian Mediport remains in good positioning. Elevation of left hemidiaphragm is seen with indistinctness of the diaphragm and increased density in the left lower chest suggesting small pleural effusion. Linear areas of atelectasis or infiltrate in the left lower lobe and lingula of the left upper lobe are seen. No pneumothorax is seen in the patient status post thoracentesis.. Electronically signed by: Robb Rhodes MD 06/26/2020 1:50 PM SHUTTLE VAN DRIVER
--- NOTE | 2020-06-26 14:49 | US ---
EXAM DESCRIPTION: Chest: Ultrasound CLINICAL HISTORY: lt pleural effusion COMPARISON: CT scan of the chest showing moderate left pleural effusion on this visit. TECHNIQUE: The procedure was performed by Dr. Centeno. Ultrasound used for planning of the thoracentesis via posterior approach. Please refer to surgical procedure notes. No immediate complications are demonstrated. Permanent images of this procedure are stored in the patient's medical record. FINDINGS: Prior to thoracentesis, large effusion visible in the left hemithorax. Trace amount of effusion after the procedure. 1200 mL removed. IMPRESSION: Successful thoracentesis left hemithorax performed by Dr. Centeno, after ultrasound planning. Please refer to procedure notes. Electronically signed by: David Winslow MD 06/26/2020 2:47 PM MARKETING COMMUNICATIONS COORDINATOR
[2020-06-26] MEDS: HYDROcodone 10MG/APAP 325MG 1 EA TAB PO PRN ×2 (15:28→19:40)
[2020-06-26] MEDS ORDERED: PROMETHAZINE HCL 25 MG TAB PO PRN (17:32)
[2020-06-26] MEDS: PREGABALIN 75 MG CAP PO SCH (20:51)
[2020-06-26] MEDS ORDERED: IBUPROFEN 400 MG TAB ONE (23:46)
[2020-06-26] MEDS ORDERED: IBUPROFEN 200 MG TAB ONE (23:46)
[2020-06-27] MEDS: fentaNYL CITRATE INJ 50 MCG/ML 2 ML AMP IV PRN ×3 (03:07→09:05)
[2020-06-27] MEDS: HYDROcodone 10MG/APAP 325MG 1 EA TAB PO PRN (05:02)
[2020-06-27] MEDS ORDERED: PANTOPRAZOLE SODIUM TAB 40 MG PO SCH (06:30)
--- NOTE | 2020-06-27 07:14 | RAD ---
EXAM: Chest Radiography COMPARISON: Chest radiograph June 26, 2020 INDICATION: follow up effusion FINDINGS: A single AP view of the chest demonstrates an indistinct cardiomediastinal silhouette. Right chest port in place. No pneumothorax. Mild increase in large left pleural effusion with left lung consolidation/atelectasis. Osseous structures are intact. IMPRESSION: Mild increase in large left pleural effusion with left lung consolidation/atelectasis. No consolidation or pulmonary edema. Electronically signed by: David Burnham MD 06/27/2020 7:12 AM PARTNERSHIP MANAGER
[2020-06-27] MEDS ORDERED: IBUPROFEN 200 MG TAB ONE (08:15)
[2020-06-27] MEDS ORDERED: POLYETHYLENE GLYCOL 3350 17 GM PCKT ONE (08:15)
[2020-06-27] MEDS ORDERED: fentaNYL CITRATE INJ 50 MCG/ML 2 ML AMP ONE (08:58)
[2020-06-27] MEDS ORDERED: POLYETHYLENE GLYCOL 3350 17 GM PCKT PO SCH (09:00)
[2020-06-27] MEDS ORDERED: IBUPROFEN 200 MG TAB PO SCH (09:00)
[2020-06-27] MEDS ORDERED: fentaNYL PATCH 50 MCG/HR 1 EA PATCH TD SCH (09:00)
[2020-06-27] MEDS ORDERED: SUCRALFATE 1 GM TAB PO SCH (09:00)
[2020-06-27] MEDS ORDERED: REMOVE OLD PATCH TOP SCH (09:00)
[2020-06-27] MEDS ORDERED: DOCUSATE SODIUM 100 MG CAP PO SCH (09:00)
[2020-06-27] MEDS ORDERED: fentaNYL PATCH 75 MCG/HR 1 EA PATCH TD SCH (09:00)
[2020-06-27] MEDS: PREGABALIN 75 MG CAP PO SCH (09:04)
--- NOTE | 2020-06-27 09:21 | OP ---
DATE OF PROCEDURE: 06/26/20 PREOPERATIVE DIAGNOSIS: 1. History of carcinoma of the breast. 2. Symptomatic left pleural effusion. POSTOPERATIVE DIAGNOSIS: 1. History of carcinoma of the breast. 2. Symptomatic left pleural effusion. PROCEDURE: 1. Sonographically guided left thoracentesis. SURGEON: Krzysztof Centeno MD WATERWORKS PUMP STATION OPERATOR: None ANESTHESIA: Local infiltration of 1% lidocaine. INDICATION: The patient is a 40-year-old female who is known to have metastatic carcinoma of the breast who has developed shortness of breath and has unrelenting pain that she states in the upper left abdomen. CT of the abdomen was benign. CT of the chest revealed a large left pleural effusion without any obvious tumor. A thoracentesis is performed for diagnostic and therapeutic indications after the risks, benefits and alternatives were discussed and accepted. FINDINGS: Approximately 1200 cc of clear, dark, straw-colored fluid was obtained. Post procedure chest x-ray revealed no pneumothorax. PROCEDURE: After the patient was sitting at the bedside with her arms elevated over the bedside table and pillow, the left back was prepped and draped. The ultrasound device was used to identify the pocket of fluid. Under ultrasound guidance, the needle was advanced into the chest. Fluid was obtained, then a stab wound was made with a 15 blade and the thoracentesis catheter was introduced under the rib into the chest. The catheter was advanced and the needle withdrawn. It was then connected to a three-way stopcock and 100 cc of fluid was obtained. It was then connected to the suction canister and the remaining fluid was obtained without difficulty. When the patient developed cough and discomfort at the end, the catheter was withdrawn with the procedure terminated. Pressure was held for hemostasis. Sterile band-aid was placed over the wound. A portable chest x-ray was ordered. The patient tolerated the procedure well. There was essentially no blood loss. #[id number] [facility]
--- NOTE | 2020-06-27 09:57 | CT ---
EXAM DESCRIPTION: Chest w/Contrast : Computed Tomography. CLINICAL HISTORY: 40 years Female fu breast ca with pulmonary mets COMPARISON: CT scan chest with IV contrast June 26. CT scan chest with contrast October 28, 2019. TECHNIQUE: Spiral-axial scans at 5 x 5 mm intervals through the lungs and thorax with IV contrast. 2.5 x 5 mm lung algorithm axial reconstructions. Coronal and sagittal 2.0 Mm reconstructions. No adverse reactions. Total Exam DLP: 400 mGy-cm. This exam was performed according to our departmental dose-optimization program which includes automated exposure control, adjustment of the mA and/or kV according to patient size and/or use of iterative reconstruction technique; to reduce radiation dose to as low as reasonably achievable (ALARA). Nodule measurements under 10 mm are given as mean value of 3 axes diameters. FINDINGS: Pleural spaces and lungs and large airways: Significant reduction in left pleural effusion since the study yesterday. No pneumothorax. No abnormal pleural enhancement pleural enhancement around the effusion. Atelectasis in the right lower lobe and inferior lingula and decreased since the prior study. Atelectasis also in the superior lingula. Subpleural nodules in the apex of the left lung. 3 mm nodule left upper lobe 3.5 mm in nodule in the left apex on axial series 4, image 34 is slightly enlarged compared to the October study. Smaller subpleural nodules in the right left upper lobe abutting the pleura are new since the prior study. 4 mm subpleural nodule in the anterior lingula on image 4/64 has enlarged since the prior study. Similar size nodule also anterior subpleural slightly lower level and more medial is also minimally enlarged. 3 mm subpleural nodule in the inferior lingula on image 4/71 has enlarged since the prior study. New subpleural nodule versus focal pleural thickening in the left lower lobe which is displaced by the pleural effusion. Measuring 6.8 mm on image 4/72. This could also represent atelectasis. 6 mm solid nodule versus atelectasis inferior lingula on image 4/76. 3 mm nodule abutting the posterior pleura in the apex of the superior segment right lower lobe, on image 4/47, not seen on the May study. 3.2 mm nodule lateral subpleural superior segment right lower lobe, on image 4/64, has enlarged since the prior study. Similar size groundglass nodule abutting the lateral right major fissure also subpleural on image 4/67 not seen on the May study. 3 mm subpleural nodule medially superior segment right lower lobe on image 4/73 are slightly enlarged since the October study. Mediastinum and Rebecca: no abnormal enhancement or abnormal-appearing lymph nodes. No dominant soft tissue mass. Great vessels and Heart: Unremarkable. Soft tissues of neck base, axillae, and chest wall: Bilateral retro-muscular breast implants. Appears stable. DJD tip in the proximal superior vena cava just above the superior cavoatrial junction. Injection port is subcutaneous overlying the upper inner right breast implant. Normal appearance of the axillary and subclavian nodes. Upper abdomen: Stable since the prior study. Osseous structures: Early spondylosis mid thoracic endplates. Stable sclerosis proximal sternum with no bone destruction. Mild dextroscoliosis. IMPRESSION: 1. Left pleural effusion has decreased significantly in size since the prior study, status post thoracentesis yesterday. Decreased atelectasis in the left lower lobe and lingula. No pneumothorax or other complications. 2. New subpleural and pleural nodules bilaterally, especially left upper lobe the prior study in October 2019. These could represent metastatic disease. Left lower lobe pleura difficult to evaluate due to pleural effusion. Smaller subpleural nodules in the right lower lobe may also be enlarging. CRITICAL COMMUNICATION: The critical value was communicated directly by Dr. Winslow when reviewing the images, with Dr. Centeno, at approximately 1900 hours, on June 27, 2020. Electronically signed by: David Winslow MD 06/27/2020 9:56 AM CHANNEL CEMENTER
[2020-06-27 12:18] VITALS: BP 121/80; TEMP 96.6; O2SAT 96
--- NOTE | 2020-06-27 13:40 | DS ---
SUPERVISING PHYSICIAN: Fly Zepeda MD ADMISSION DIAGNOSIS: 1. Large left pleural effusion. 2. Intractable left upper quadrant abdominal pain, possible pleurisy. 3. History of metastatic breast cancer to the lungs and bones although no lesions visualized on CT scan here in the lungs. 4. Immunocompromised state secondary to chemotherapy and immunotherapy. DISCHARGE DIAGNOSIS: 1. Large left pleural effusion, improved status post thoracentesis. 2. Intractable left upper quadrant/pleuritic pain, improved. 3. History of metastatic breast cancer to the lungs and bones with new lesions seen in the left lung on repeat CT scan done post thoracentesis. 4. Immunocompromised state secondary to chemotherapy and immunotherapy. HOSPITAL COURSE: This is a 40-year-old female with a history of breast cancer status post mastectomy in 2012, but now with metastasis to the lungs and the bones. She apparently has been having this pain for the last few months. She was actually at [place] yesterday getting this pain evaluated as well. She has had an EGD, colonoscopy which have ruled out neoplasm. She is currently on chemotherapy and immunotherapy every 3 weeks per oncology through [place]. There is no mention of a pleural effusion on the records from [place]. Apparently back in May, she had had some thoracic spinal pain and received a fluoroscopically guided left thoracic medial branch nerve block at T6 to T9. It also appears that on June 05 she had fluoroscopically guided radiofrequency denervation of the cervical medial branch nerves at T6, T7 and T9 levels. When she came to the ER today, she had CT of the chest, abdomen and pelvis. The CT abdomen and pelvis was consistent with a large left pleural effusion with adjacent atelectasis or consolidation, a sclerotic lesion in the sternum and manubrium, but no new osseous lesions, and a new solid noncalcified sub 6 mm right lower lobe pulmonary nodule. The rest of the scan was unremarkable. She had a CT scan of the chest which showed a large left pleural effusion as well and basically showed the same findings as the abdomen and pelvis. Her labs were unremarkable. Dr. Centeno, who performed the mastectomy on the patient in 2012, and in fact the patient called his office today, went by to see the patient and plans on thoracentesis. At time of examination, the patient has some mild shortness of breath, but consistent pain which although better than when she arrived, she is still hurting. Her vital signs have been stable. The patient underwent thoracentesis with approximately 1 liter of fluid removed. This was sent for cytology and is not back yet. She had immediate relief of the pain post thoracentesis. She remained overnight to monitor and had a repeat CT scan on 06/27/20 which showed a reduction in the fluid levels, however, new lesions were seen in that lung on CT scan. I discussed this with the patient as well as Dr. Cummings. The patient will go home in stable condition today. Dr. Cummings is going to provide a prescription for fentanyl patches to be used for pain. That has been sent to the pharmacy at [place]. I have also put her on Lyrica 150 mg t.i.d. as well as pantoprazole daily. She states she is going to change oncologists in [place] and she has already initiated that process. She will need a followup chest x-ray or CT scan to reevaluate the pleural effusion. #[id number] MTDD
== END 2020-06-27 13:05 | disposition home or self-care (01) ==
LOC: ER 07:52 → MS 07:53 → UNDOADMOB 12:02 → UNDODISOB 06-27 13:05
PROVIDERS: ADMIT Nurse Practitioner; ATTEND Nurse Practitioner
DX: J90 Pleural effusion, not elsewhere classified (principal); R10.12 Left upper quadrant pain; C78.02 Secondary malignant neoplasm of left lung; C78.01 Secondary malignant neoplasm of right lung; C79.51 Secondary malignant neoplasm of bone; D84.89 Other immunodeficiencies; Z85.3 Personal history of malignant neoplasm of breast; Z90.13 Acquired absence of bilateral breasts and nipples; Z79.891 Long term (current) use of opiate analgesic; Z88.6 Allergy status to analgesic agent; Z92.21 Personal history of antineoplastic chemotherapy; Z90.710 Acquired absence of both cervix and uterus; Z80.3 Family history of malignant neoplasm of breast
CPT/HCPCS: 32555; 96374; 96375; 96376 ×2; 96372; J3010 ×8; J1170; J1885; J7030; A4216; 85379; 82553; 80053; 36415 ×2; 82150 ×2; 81001; 85025; 82550; 84703; 83690; 85730; 85610; 84484; 83880; 84315; 89051; 83605; 71045 ×2; 71260 ×2; 74177; 76604; 99285; 87635

== ENCOUNTER → 2020-07-05 | Outpatient (CLI) | payer OTHER ==
--- NOTE | 2020-07-05 11:20 | OP ---
DATE OF PROCEDURE: 07/05/20 PREOPERATIVE DIAGNOSIS: 1. Recurrent malignant left pleural effusion. POSTOPERATIVE DIAGNOSIS: 1. Recurrent malignant left pleural effusion. PROCEDURE: 1. Sonographically guided thoracentesis on the left. SURGEON: Krzysztof Centeno MD. CHAR CONVEYOR TENDER CELLAR: None. ANESTHESIA: Local infiltration of 1% lidocaine. INDICATION: The patient is a 40-year-old female with triple negative breast cancer with pulmonary and metastasis and left pleural effusion which has revealed malignant cells in the past. She has had pain and dyspnea associated with this. She was brought to the Ultrasound Unit today for sonographically guided therapeutic thoracentesis. FINDINGS: Approximately 1050 cc of clear, blood-tinged fluid was obtained. There were a small number of bubbles noted at the end of the procedure. DESCRIPTION OF PROCEDURE: The patient was brought to the Ultrasound Suite sitting on the side of the exam table with her arms extended above on a pillow. The left back was inspected using ultrasound and an area was decided upon. The chest wall was prepped with ChloraPrep and then local infiltration of anesthesia was obtained with 1% lidocaine and the 22-gauge needle was introduced under ultrasound guidance with infiltration of anesthesia through the track. It then entered the pleural space and fluid was obtained. At this point, a stab wound was made with an 11 blade and the thoracentesis catheter with needle was introduced without difficulty. Fluid was obtained. The plastic catheter was advanced after the needle was withdrawn. A total of 100 cc was removed using the syringe and then connected to a suction canister and the remaining fluid was removed. During the end of the procedure, the patient had some significant coughing which is at the time that the fluid stopped draining and a small number of bubbles were obtained at the end. Otherwise, the patient tolerated the procedure well. There was essentially no blood loss. The catheter was withdrawn and band-aid was placed over the wound after the tissue was massaged to close the tract. Chest x-ray was ordered post procedure. #[id number] MTDD
--- NOTE | 2020-07-05 11:40 | RAD ---
EXAM DESCRIPTION: Chest,1 View: CR/DR/XR. CLINICAL HISTORY: 40 years Female POST THORA COMPARISON: Ultrasound planning for thoracentesis on this visit. Chest x-ray and chest CT scan with contrast June 27 TECHNIQUE: ONE VIEW PORTABLE. AP 1035 hours, upright position. FINDINGS: Significant decrease in left pleural effusion since the prior study. Atelectasis and density again visualized in the left base with decreased volume in the left lung compared to the right. No pneumothorax. Elevation of the left hemidiaphragm. No pleural effusion on the right. Heart size and pulmonary vascularity are unremarkable with no mediastinal widening. Left subclavian VAD access with the catheter tip in the customary position. IMPRESSION: Postthoracentesis left hemithorax with significant reduction in left pleural effusion and no pneumothorax or other complications. The examination was reviewed with Dr. Krzysztof Centeno at approximately 1125 hours on this date. Electronically signed by: David Winslow MD 07/05/2020 11:39 AM [facility]
--- NOTE | 2020-07-05 12:15 | US ---
EXAM DESCRIPTION: Thoracentesis: : ULTRASOUND. CLINICAL HISTORY: 40 years Female PLEURAL EFFUSION COMPARISON: None Available. TECHNIQUE: Procedure performed by Dr. Centeno after ultrasound performed to localize pleural fluid prior to thoracentesis, using grayscale mode. Largest fluid pocket found in the left hemithorax. Skin of back overlying the left hemithorax was marked for Dr. Centeno. No complicating process is demonstrated. One image shows the thoracentesis catheter In the fluid. 1.05 L of fluid removed. Please refer to physician's procedure note for specific details. 7 permanent images of this procedure are stored in the patient's medical record. IMPRESSION: Thoracentesis left hemithorax performed by Dr. Centeno after ultrasound planning. Electronically signed by: David Winslow MD 07/05/2020 12:14 PM [facility]
== END ==
LOC: US 10:01
PROVIDERS: ATTEND Surgery
DX: J90 Pleural effusion, not elsewhere classified (principal)

== ENCOUNTER → 2020-07-10 | Outpatient (CLI) | payer OTHER | LOC: GMAL 14:07 | PROVIDERS: ATTEND Family Medicine | DX: R39.15 Urgency of urination (principal) ==

== ENCOUNTER → 2020-07-12 | Outpatient (CLI) | payer OTHER ==
--- NOTE | 2020-07-12 12:59 | MRI ---
EXAM DESCRIPTION: Brain w/wo Contrast: Magnetic Resonance Imaging. CLINICAL HISTORY: 40 years Female HEADACHE, HX OF CANCER COMPARISON: Chest CT scan with contrast June 27. TECHNIQUE: Multiplanar, high-field MRI, multiple conventional sequences, without and with gadolinium IV contrast. No adverse reactions. Multiple axial diffusion sequences. Technically difficult study due to patient motion. FINDINGS: Normal FLAIR and T2-weighted signal in the periventricular white matter and plascencia-white matter junctions of the cerebral hemispheres. No hemorrhage, no cerebral edema, no mass-effect. Small cysts or prominent perivascular spaces in the subcortical white matter of the bilateral occipital lobes. No abnormal contrast enhancement. Normal signal in the bilateral basal ganglia. Normal contrast enhancement. Normal signal in the brainstem and cerebellar hemispheres. Normal contrast enhancement. Concordance of the diffusion and non-diffusion sequences with no evidence of acute or subacute infarction. Cortical sulci, ventricles, and other CSF spaces, and the subdural spaces are normally configured for patient's age. No effacement or displacement. No midline shift. No extra-axial hemorrhage. Normal contrast enhancement. IACs are symmetric bilaterally. Normal signal in the bilateral mastoid air cells. No mass effect in the bilateral Cerebellopontine angles. Normal contrast enhancement. Pituitary gland occupies less than half of the sella. Normal contrast enhancement. Base of the cerebellar tonsils is just above the foramen magnum. Become periosteal thickening in the paranasal sinuses. No air-fluid levels. The bony calvarium is intact. IMPRESSION: 1. Normal MRI scan of the brain without and with gadolinium IV contrast. No abnormal enhancement. No mass effect, no edema, no midline shift, no hemorrhage or abnormal fluid. 2. Normal noncontrast MRI perfusion study with no evidence of significant ischemia or acute/subacute infarction. 3. Minimal chronic paranasal sinusitis. Electronically signed by: David Winslow MD 07/12/2020 12:57 PM [facility]
== END ==
LOC: MRI 07:05
PROVIDERS: ATTEND Internal Medicine Hematology & Oncology
DX: C50.112 Malignant neoplasm of central portion of left female breast (principal); J32.9 Chronic sinusitis, unspecified

== ENCOUNTER → 2020-07-14 | Outpatient (CLI) | payer OTHER ==
--- NOTE | 2020-07-14 12:05 | OP ---
DATE OF PROCEDURE: 07/14/20 PREOPERATIVE DIAGNOSIS: 1. Recurrent malignancy left pleural effusion secondary to breast cancer. POSTOPERATIVE DIAGNOSIS: 1. Recurrent malignancy left pleural effusion secondary to breast cancer. PROCEDURE: 1. Sonographically guided thoracentesis. SURGEON: Krzysztof Centeno MD. BUSINESS DATA ANALYST: None. ANESTHESIA: Local infiltration of 1% lidocaine. INDICATION: The patient is a 40-year-old female with metastatic breast cancer with pulmonary metastasis and now pleural effusion on the left. She has pain and shortness of breath associated with it. She is scheduled to see a thoracic surgeon on Friday to consider a pleurodesis. She was brought to the outpatient ultrasound for sonographically guided, therapeutic thoracentesis. FINDINGS: Approximately 900 cc of blood-tinged clear fluid was obtained. PROCEDURE: The patient was sat at the bedside with the arms elevated over a table. The left back was examined with the ultrasound and place was selected for the thoracentesis. It was then prepped with ChloraPrep and draped. The ultrasound devices were placed. Local infiltration of anesthesia was obtained. A 22-gauge needle was introduced over the rib under visual guidance of the ultrasound and introduced into the chest and fluid was obtained. A stab wound was made with an 11 blade. The thoracentesis needle was then introduced, again, under ultrasound guidance into the chest. The needle was withdrawn as the catheter was advanced. Using a three-way stopcock, 100 cc was removed. It was then connected to the suction canister and the remaining fluid was obtained. The patient tolerated the procedure well with a small amount of coughing. The catheter was removed. The catheter path was obliterated with massage and then a band-aid was placed over the incision. The patient tolerated the procedure well and was discharged home in stable condition. There was essentially no blood loss. #[id number] MTDD
--- NOTE | 2020-07-15 12:44 | US ---
EXAM DESCRIPTION: Thoracentesis: Ultrasound CLINICAL HISTORY: MALIGNANT PLEURAL EFFUSION COMPARISON: Ultrasound thoracentesis July 05. TECHNIQUE: Procedure performed by Dr. Centeno after ultrasound performed to localize pleural fluid prior to thoracentesis, using grayscale mode. Largest fluid pocket found in the left hemithorax. Skin of back overlying the left hemithorax was marked for site of catheter insertion. No complicating process is demonstrated. One image shows the thoracentesis catheter in left hemithorax. 900 mL of fluid removed. Follow-up image shows trace amount of pleural fluid in the left hemithorax. Please refer to physician's procedure note for specific details. 6 permanent images of this procedure are stored in the patient's medical record. IMPRESSION: Thoracentesis left hemithorax performed by Dr. Centeno after ultrasound planning. Electronically signed by: David Winslow MD 07/15/2020 12:43 PM [facility]
== END ==
LOC: US 10:03
PROVIDERS: ATTEND Surgery
DX: J91.0 Malignant pleural effusion (principal); C50.112 Malignant neoplasm of central portion of left female breast

== ENCOUNTER → 2020-07-26 | Outpatient (CLI) | payer OTHER ==
--- NOTE | 2020-07-26 10:32 | OP ---
DATE OF PROCEDURE: 07/26/20 PREOPERATIVE DIAGNOSIS: 1. Recurrent malignant left pleural effusion secondary to breast cancer. POSTOPERATIVE DIAGNOSIS: 1. Recurrent malignant left pleural effusion secondary to breast cancer. PROCEDURE: 1. Sonographically guided thoracentesis. SURGEON: Krzysztof Centeno MD. TEMPERATURE CONTROL INSPECTOR: None. ANESTHESIA: Local infiltration of 1% lidocaine. INDICATION: The patient is a 40-year-old female with metastatic breast cancer with a recurrent malignant left pleural effusion causing shortness of breath and pain. She was brought to the Ultrasound Suite today for sonographically guided thoracentesis. FINDINGS: About 825 cc of blood-tinged clear fluid was obtained. PROCEDURE: The patient was brought to the Ultrasound Suite and is sitting on the bedside with the arms elevated over a table and pillow. The left breast was examined using ultrasound and a rib space was chosen. The chest was then prepped and draped in the usual manner. Local infiltration of anesthesia was obtained with 1% lidocaine and the 22-gauge needle was introduced over the rib into the pleural space and fluid was obtained. When this was done, the needle was removed. A stab wound was made with an 11 blade and the thoracentesis needle and catheter were introduced under ultrasound guidance. Fluid was obtained. The catheter was advanced and the needle was withdrawn. It was connected to the three-way stopcock and a total of 100 cc of fluid was obtained. It was then connected to the suction canister and the remaining fluid was obtained without difficulty. The patient did have some coughing at the end of the procedure as usual. The patient tolerated the procedure well. There was essentially no blood loss. #[id number] MTDD
--- NOTE | 2020-07-26 16:44 | US ---
EXAM DESCRIPTION: Thoracentesis: : ULTRASOUND. CLINICAL HISTORY: 40 years Female malignant pleural effusion COMPARISON: Ultrasound planning and thoracentesis July 14. TECHNIQUE: Procedure performed by Dr. Centeno after ultrasound performed to localize pleural fluid prior to thoracentesis, using grayscale mode. Largest fluid pocket found in the left hemithorax. Skin of back overlying hemithorax hemithorax was marked for access.. No complicating process is demonstrated. One image shows the thoracentesis catheter in left hemithorax fluid collection. 825 mL of fluid removed. Please refer to physician's procedure note for specific details. 6 permanent images of this procedure are stored in the patient's medical record. IMPRESSION: Thoracentesis left hemithorax performed by Dr. Centeno after ultrasound planning. Electronically signed by: David Winslow MD 07/26/2020 4:42 PM [facility]
== END ==
LOC: US 09:09
PROVIDERS: ATTEND Surgery
DX: J91.0 Malignant pleural effusion (principal); C50.112 Malignant neoplasm of central portion of left female breast